=== PATIENT | male | born 2000 | race Caucasian/White ===

== ENCOUNTER → 2024-02-19 14:16 | Outpatient (CLI) | payer OTHER, SELFPAY ==
--- NOTE | 2024-02-19 14:20 | DI.CT.S_ITS ---
PROCEDURE: CT ABDOMEN PELVIS W CON INDICATIONS: ABDOMINAL PAIN / CONCERN FOR APPENDICITIS TECHNIQUE: After the administration of intravenous contrast, axial sections acquired from the lung bases to the pubic symphysis. Coronal and sagittal reformats were performed. For radiation dose reduction, the following was used: automated exposure control, adjustment of mA and/or kV according to patient size. COMPARISON: None. FINDINGS: Image quality: Diagnostic. Lower Chest: No significant findings. ABDOMEN: Liver: No solid mass. A subcentimeter area of hyperdense enhancement is seen in the left lobe liver most consistent with a flash filling hemangioma in a patient of this age with no known liver disease or malignancy. Gallbladder: Unremarkable Biliary ducts: No biliary dilation. Pancreas: No ductal dilation. Spleen: Size is within normal limits. Adrenal Glands: No adrenal nodules. Kidneys and Ureters: No hydronephrosis. No solid mass. No complex renal cystic lesion which requires follow up. Stomach and Bowel: Normal colonic caliber, without significant wall thickening. Peritoneum: No abnormal intraperitoneal fluid. No free air. Appendix normal. Ventral Wall: No significant ventral hernia. Abdominal Nodes: No retroperitoneal or mesenteric adenopathy by size criteria. Vessels: Aorta and inferior vena cava are normal in size. PELVIS: Pelvic Organs: Unremarkable. Bladder: No bladder wall thickening, accounting for underdistention. Pelvic Nodes: No enlarged lymph nodes. Miscellaneous: No inguinal hernias are seen. Bones: No aggressive osseous abnormality. IMPRESSION: 1.. Normal appearance of the appendix. No acute abdominal or pelvic process. 2. Subcentimeter area of enhancement left lobe lateral segment liver most consistent with a flash filling hemangioma in a patient of this age with no known liver disease or known malignancy. Dictated by: Wili Song M.D. on 02/19/2024 at 16:06 Approved by: Wili Song M.D. on 02/19/2024 at 16:15
== END ==
LOC: CT 14:19
DX: R10.9 Unspecified abdominal pain (principal)
CPT/HCPCS: 74177; Q9967